=== PATIENT | female | born 1980 | race Caucasian/White ===

== ENCOUNTER 2018-08-27 06:25 | Day surgery (SDC) | payer OTHER ==
[~2018-08-27 06:25] MED LIST: FOLGARD TABLET1 EACH PO; FOLIC ACID1 MG PO; HUMIRA40 MG/0.2; METROTEXATE PO; PREDNISONE5 M1 PO; PROLIA60 MG/1 ML
== END 2018-08-27 13:20 | disposition home or self-care (01) ==
LOC: CIR.AMB 06:25
DX: M19.022 Primary osteoarthritis, left elbow (principal)
CPT/HCPCS: 24363; C1776